=== PATIENT | female | born 1955 | race Caucasian/White ===

== ENCOUNTER 2017-09-30 15:40 | Inpatient (IN) | payer OTHER, MEDICAID, MEDICARE ==
[~2017-09-30] VITALS: Ht 160 cm; Wt 60.9 kg
[~2017-09-30 15:40] MED LIST: DENO60P SQ; DEXAMETHASONE SOD PHOS 4 MG/ML VIAL IV ONE; EMTR1TAB5 PO; INTE200T2 PO; LIDOCAINE HCL 1% PF 5 ML SYRINGE OTHER ONE; LISI10TA3 PO; ONDANSETRON HCL 4 MG/2 ML VIAL IV PUSH ONE; PHENYLEPH/NS 1000 MCG/10 ML SYR IV ONE; PROPOFOL 200 MG/20 ML AMP IV ONE; VIST50CA PO; ceFAZolin INJ 1,000 MG VIAL IV ONE
[2017-09-30 16:41] VITALS: BP 151/80; PULSE 93; RESP 18; TEMP 97.9; O2SAT 95
--- NOTE | 2017-09-30 17:40 | PD ---
HPI Chief Complaint: Skin Problem Time Seen by Provider: 17:30 Travel History International Travel<30 days: No Contact w/Intl Traveler<30days: No Traveled to known affect area: No History of Present Illness HPI 61yo F with PMH of HIV on medication with undetectable viral load, osteoporosis was sent in to the ED by hand surgeon Dr. Stearns. She said that her right third digit has been infected for a month from a possible spider bite. Said she finished two courses of antibiotics and it was not better. She had MRI right hand on Saturday and it showed abscess. She was advised not to eat or drink anything after her phone call at 12pm this afternoon so has been NPO since 12pm. Denies any fever, chest pain, sob, n/v, abdominal pain, focal weakness or numbness. PFSH Past Medical History Blood Disorders: No Anxiety: Yes Depression: Yes Cancer: Yes (MELANOMA BUTTOCKS; BASAL CELL SKIN CANCERS) Cardiovascular Problems: No Chemotherapy: No Diabetes: No Endocrine: No Gastrointestinal Disorders: Yes (DIVERTICULOSIS) Genitourinary: No Hepatitis: No Hiatal Hernia: No Hypertension: Yes Immune Disorder: No Musculoskeletal: Yes (TOTAL RIGHT HIP REPLACEMENT; PARTIAL LEFT HIP REPLACEMENT ; SCOLIOSIS) Neurologic: No Psychiatric: No Reproductive: No Respiratory: No Radiation Therapy: No Thyroid Disease: No Tetanus Vaccination: Unknown ?: Not : 1 Para: 1 Past Surgical History Abdominal Surgery: Yes (APPY ) Appendectomy: Yes Cardiac Surgery: No Ear Surgery: No Eye Surgery: No Gynecologic Surgery: No Joint Replacement: Yes (BILAT HIP) Oral Surgery: No Pacemaker: No Thoracic Surgery: No Other Surgery: Yes Social History Alcohol Use: Yes Tobacco Use: No Substance Use: No Allergies-Medications (Allergen,Severity, Reaction): Coded Allergies: morphine (Unverified Allergy, Intermediate, Hallucinations, 09/30/17) Uncoded Allergies: CATS AND HORSES (Allergy, Mild, 09/14/09) Reported Meds & Prescriptions Reported Meds & Active Scripts Active Reported Descovy (Emtricitabine-Tenofovir Alafenamide) 200-25 mg Tab 1 Tab PO DAILY Intelence (Etravirine) 200 Mg Tab 200 Mg PO BID Review of Systems Except as stated in HPI: all other systems reviewed are Neg Physical Exam Narrative GENERAL: 61yo F not in distress. SKIN: Focused skin assessment warm/dry. HEAD: Atraumatic. Normocephalic. CARDIOVASCULAR: Regular rate and rhythm. No murmur appreciated. RESPIRATORY: No accessory muscle use. Clear to auscultation. Breath sounds equal bilaterally. GASTROINTESTINAL: Abdomen soft, non-tender, nondistended. MUSCULOSKELETAL: Right hand: +Erythema and edema in dorsal aspect of third IP with some fluctuance. NEUROLOGICAL: Awake and alert. No obvious cranial nerve deficits. Motor grossly within normal limits. Normal speech. PSYCHIATRIC: Appropriate mood and affect; insight and judgment normal. Data Data Last Documented VS Vital Signs Date Time Temp Pulse Resp B/P (MAP) Pulse Ox O2 Delivery O2 Flow Rate FiO2 09/30/17 16:41 97.9 93 18 151/80 (103) 95 Orders Orders Complete Blood Count With Diff (09/30/17 17:46) Basic Metabolic Panel (Bmp) (09/30/17 17:46) Consult Infectious Disease (09/30/17 ) Diet Npo (09/30/17 Dinner) Consult Hand Surgery (09/30/17 ) Westergren Sedimentation Rate (09/30/17 18:08) Lymphocyte Profile Cd4 Cd8 (09/30/17 18:08) Consent (09/30/17 18:10) (Hub Use Only)Inp Phy Cons/Ref (09/30/17 ) C-Reactive Protein (Crp) (09/30/17 18:06) Ketorolac Inj (Toradol Inj) (09/30/17 19:15) Neomycin-Polymyxin G.U. Irr (Neosporin G (09/30/17 19:23) (Hub Use Only)Inp Phy Cons/Ref (09/30/17 ) Admit Order (Ed Use Only) (09/30/17 19:32) Labs Laboratory Tests Test 09/30/17 18:06 White Blood Count 4.0 TH/MM3 Red Blood Count 3.69 MIL/MM3 Hemoglobin 12.3 GM/DL Hematocrit 36.4 % Mean Corpuscular Volume 98.9 FL Mean Corpuscular Hemoglobin 33.3 PG Mean Corpuscular Hemoglobin Concent 33.6 % Red Cell Distribution Width 12.2 % Platelet Count 179 TH/MM3 Mean Platelet Volume 7.4 FL Neutrophils (%) (Auto) 54.2 % Lymphocytes (%) (Auto) 32.8 % Monocytes (%) (Auto) 7.9 % Eosinophils (%) (Auto) 4.0 % Basophils (%) (Auto) 1.1 % Neutrophils # (Auto) 2.2 TH/MM3 Lymphocytes # (Auto) 1.3 TH/MM3 Monocytes # (Auto) 0.3 TH/MM3 Eosinophils # (Auto) 0.2 TH/MM3 Basophils # (Auto) 0.0 TH/MM3 CBC Comment DIFF FINAL Differential Comment Erythrocyte Sedimentation Rate 17 mm/hr Blood Urea Nitrogen 21 MG/DL Creatinine 0.82 MG/DL Random Glucose 86 MG/DL Calcium Level 8.8 MG/DL Sodium Level 141 MEQ/L Potassium Level 3.4 MEQ/L Chloride Level 104 MEQ/L Carbon Dioxide Level 27.5 MEQ/L Anion Gap 10 MEQ/L Estimat Glomerular Filtration Rate 70 ML/MIN C-Reactive Protein LESS THAN 0.29 MG/DL MDM Medical Decision Making Medical Screen Exam Complete: Yes Emergency Medical Condition: Yes Differential Diagnosis Finger abscess Narrative Course 61yo F here with right third finger abscess. I discussed with Dr. Stearns and she said to keep the patient NPO, admit to medicine and she will place an ID consult as well as try to take her to the OR tonight. Labs reviewed, no leukocytosis. H/H normal. BMP unremarkable except BUN mildly elevated. Will give maintenance fluid and pain medication. Pt is allergic to morphine so given toradol. Discussed with Dr. Maravilla and accepted to her service. Diagnosis Primary Impression: Abscess of finger Qualified Codes: L02.511 - Cutaneous abscess of right hand Admitting Information Admitting Physician Requests: Vilma Martins DO Sep 30, 2017 17:40
[2017-09-30 18:31] LABS: AUTOMATED NEUTROPHIL # 2.2 TH/MM3 (1.8-7.7); BASOPHIL % 1.1 % (0.0-2.0); EOSINOPHIL # 0.2 TH/MM3 (0-0.4); HEMATOCRIT 36.4 % (35.0-46.0); HEMOGLOBIN 12.3 GM/DL (11.6-15.3); LYMPH % 32.8 % (9.0-44.0); LYMPHOCYTE # 1.3 TH/MM3 (1.0-4.8); MEAN CELL VOLUME 98.9 FL (80.0-100.0); MEAN CORPUSCULAR HEMOGLOBIN 33.3 PG (27.0-34.0); MEAN CORPUSCULAR HGB CONC 33.6 % (32.0-36.0); MEAN PLATELET VOLUME 7.4 FL (7.0-11.0); MONO % 7.9 % (0.0-8.0); MONOCYTE # 0.3 TH/MM3 (0-0.9); NEUT % 54.2 % (16.0-70.0); PLATELET COUNT 179 TH/MM3 (150-450); RED BLOOD COUNT 3.69 MIL/MM3 (4.00-5.30); RED CELL DISTRIBUTION WIDTH 12.2 % (11.6-17.2)
[2017-09-30 18:58] LABS: BICARBONATE 27.5 MEQ/L (21.0-32.0); BLOOD UREA NITROGEN 21 MG/DL (7-18); C-REACTIVE PROTEIN LESS THAN 0.29 MG/DL (0.00-0.30); CALCIUM 8.8 MG/DL (8.5-10.1); CHLORIDE 104 MEQ/L (98-107); CREATININE 0.82 MG/DL (0.50-1.00); GLOMERULAR FILTRATION RATE 70 ML/MIN (>89); GLUCOSE,RANDOM 86 MG/DL (74-106); SODIUM (NA) 141 MEQ/L (136-145)
[2017-09-30] MEDS ORDERED: KETOROLAC TROMETHAMINE 30 MG/ML (IVP) VIAL IV PUSH ONE (19:15)
[2017-09-30] MEDS ORDERED: NEOMYCIN/POLYMYXIN 1 ML G.U. IRRIGANT ONE (19:23)
[2017-09-30] MEDS ORDERED: EMTR1TAB4 PO (19:47)
[2017-09-30] MEDS ORDERED: SODIUM CHLORIDE 0.9% FLUSH 10 ML FLUSH IV FLUSH PRN (20:15)
[2017-09-30] MEDS ORDERED: NALOXONE HCL 0.4 MG/ML AMP IV PUSH PRN (20:15)
[2017-09-30] MEDS ORDERED: ACETAMINOPHEN 325 MG TAB PO PRN (20:15)
[2017-09-30] MEDS ORDERED: LIDOCAINE HCL 1% 50 ML VIAL ONE (20:42)
[2017-09-30] MEDS ORDERED: Vancomycin Consult Pharmacy 1 EA OTHER SCH (20:45)
--- NOTE | 2017-09-30 20:52 | HHI.HP ---
[facility] Mago Layton MD Admission Diagnosis Finger abscess Diagnoses: Travel History International Travel<30 Days: No Contact w/Intl Traveler <30 Da: No Traveled to Known Affected Are: No History of Present Illness 61-year-old female with a past medical history significant for osteoporosis, HIV and hypertension presents the emergency department for evaluation of a erythematous and swollen right hand third digit. The patient reports that for approximately the past 3-4 weeks her finger has been swollen and painful. She reports the pain has continued to worsen and was throbbing all last night to the point where it interferes with her sleep. She denies any systemic symptoms such as fever/chills. The patient was seen by hand surgery where she was treated with 2 different courses of antibiotics and without improvement. She was sent to the emergency department by Dr. Stearns for further treatment. No chest pain or shortness of breath. No abdominal pain. No nausea/vomiting/ diarrhea. No weakness or fatigue. No lateralizing signs/symptoms. Review of Systems Except as stated in HPI: all other systems reviewed are Neg Past Family Social History Past Medical History HIV (per patient her viral load is undetectable) Osteoporosis Hypertension Past Surgical History Left hip replacement Right femur Left elbow Reported Medications Reported Meds & Active Scripts Active Reported Descovy (Emtricitabine-Tenofovir Alafenamide) 200-25 mg Tab 1 Tab PO DAILY Intelence (Etravirine) 200 Mg Tab 200 Mg PO BID Allergies: Coded Allergies: morphine (Unverified Allergy, Intermediate, Hallucinations, 09/30/17) Uncoded Allergies: CATS AND HORSES (Allergy, Mild, 09/14/09) Family History Negative for CAD/DM Social History Occasional alcohol. Denies tobacco and illicit drugs. Physical Exam Vital Signs Vital Signs Date Time Temp Pulse Resp B/P (MAP) Pulse Ox O2 Delivery O2 Flow Rate FiO2 09/30/17 16:41 97.9 93 18 151/80 (103) 95 Physical Exam GENERAL: This is a well-nourished, well-developed patient, in no apparent distress. SKIN: Extremely swollen and erythematous right hand third digit HEAD: Atraumatic. Normocephalic. No temporal or scalp tenderness. EYES: Pupils equal round and reactive. Extraocular motions intact. No scleral icterus. No injection or drainage. ENT: Nose without bleeding, purulent drainage or septal hematoma. Throat without erythema, tonsillar hypertrophy or exudate. Uvula midline. Airway patent. NECK: Trachea midline. No JVD or lymphadenopathy. Supple, nontender, no meningeal signs. CARDIOVASCULAR: Regular rate and rhythm without murmurs, gallops, or rubs. RESPIRATORY: Clear to auscultation. Breath sounds equal bilaterally. No wheezes , rales, or rhonchi. GASTROINTESTINAL: Abdomen soft, non-tender, nondistended. No hepato-splenomegaly , or palpable masses. No guarding. MUSCULOSKELETAL: No calf tenderness. Unable to flex or extend third digit of right hand at the PCP joint. No obvious drainage. Warm to the touch. NEUROLOGICAL: Awake and alert. Cranial nerves II through XII intact. Motor and sensory grossly within normal limits. Normal speech. Laboratory Laboratory Tests Test 09/30/17 18:06 White Blood Count 4.0 Red Blood Count 3.69 Hemoglobin 12.3 Hematocrit 36.4 Mean Corpuscular Volume 98.9 Mean Corpuscular Hemoglobin 33.3 Mean Corpuscular Hemoglobin Concent 33.6 Red Cell Distribution Width 12.2 Platelet Count 179 Mean Platelet Volume 7.4 Neutrophils (%) (Auto) 54.2 Lymphocytes (%) (Auto) 32.8 Monocytes (%) (Auto) 7.9 Eosinophils (%) (Auto) 4.0 Basophils (%) (Auto) 1.1 Neutrophils # (Auto) 2.2 Lymphocytes # (Auto) 1.3 Monocytes # (Auto) 0.3 Eosinophils # (Auto) 0.2 Basophils # (Auto) 0.0 CBC Comment DIFF FINAL Differential Comment Erythrocyte Sedimentation Rate 17 Blood Urea Nitrogen 21 Creatinine 0.82 Random Glucose 86 Calcium Level 8.8 Sodium Level 141 Potassium Level 3.4 Chloride Level 104 Carbon Dioxide Level 27.5 Anion Gap 10 Estimat Glomerular Filtration Rate 70 C-Reactive Protein LESS THAN 0.29 Result Diagram: 09/30/17180509/30/171805 Caprini VTE Risk Assessment Caprini VTE Risk Assessment: Mod/High Risk (score >= 2) Caprini Risk Assessment Model Point Value = 1 Point Value = 2 Point Value = 3 Point Value = 5 Age 41-60 Minor surgery BMI > 25 kg/m2 Swollen legs Varicose veins or History of unexplained or recurrent spontaneous Oral contraceptives or hormone replacement Sepsis (< 1 month) Serious lung disease, including pneumonia (< 1 month) Abnormal pulmonary function Acute myocardial infarction Congestive heart failure (< 1 month) History of inflammatory bowel disease Medical patient at bed rest Age 61-74 Arthroscopic surgery Major open surgery (> 45 min) Laparoscopic surgery (> 45 min) Malignancy Confined to bed (> 72 hours) Immobilizing plaster cast Central venous access Age >= 75 History of VTE Family history of VTE Factor V Leiden Prothrombin [id number] Lupus anticoagulant Anticardiolipin antibodies Elevated serum homocysteine Heparin-induced thrombocytopenia Other congenital or acquired thrombophilia Stroke (< 1 month) Elective arthroplasty Hip, pelvis, or leg fracture Acute spinal cord injury (< 1 month) Prophylaxis Regimen Total Risk Factor Score Risk Level Prophylaxis Regimen 0-1 Low Early ambulation 2 Moderate Order ONE of the following: *Sequential Compression Device (SCD) *Heparin 5000 units SQ BID 3-4 Higher Order ONE of the following medications: *Heparin 5000 units SQ TID *Enoxaparin/Lovenox 40 mg SQ daily (WT < 150 kg, CrCl > 30 mL/min) *Enoxaparin/Lovenox 30 mg SQ daily (WT < 150 kg, CrCl > 10-29 mL/min) *Enoxaparin/Lovenox 30 mg SQ BID (WT < 150 kg, CrCl > 30 mL/min) AND/OR *Sequential Compression Device (SCD) 5 or more Highest Order ONE of the following medications: *Heparin 5000 units SQ TID (Preferred with Epidurals) *Enoxaparin/Lovenox 40 mg SQ daily (WT < 150 kg, CrCl > 30 mL/min) *Enoxaparin/Lovenox 30 mg SQ daily (WT < 150 kg, CrCl > 10-29 mL/min) *Enoxaparin/Lovenox 30 mg SQ BID (WT < 150 kg, CrCl > 30 mL/min) AND *Sequential Compression Device (SCD) Assessment and Plan Assessment and Plan Assessment/plan: 1. Finger abscess/cellulitis Status post antibiotic therapy as an outpatient MRI done Saturday showed abscess Hand surgery consulted, appreciate assistance Vancomycin/Zosyn Wound cultures pending -tailor antibiotics once cultures result OT consulted 2. HIV Continue home antiretrovirals 3. Hypertension Continue home amlodipine FEN Regular diet after operative intervention Electrolytes: Status post p.o. repletion of potassium, monitor BMP Holding pharmacologic anticoagulation for operative intervention Physician Certification 2 Midnight Certification Type: Admission for Inpatient Services Order for Inpatient Services The services are ordered in accordance with Medicare regulations or non- Medicare payer requirements, as applicable. In the case of services not specified as inpatient-only, they are appropriately provided as inpatient services in accordance with the 2-midnight benchmark. Estimated LOS (days): 2 2 days is the estimated time the patient will need to remain in the hospital, assuming treatment plan goals are met and no additional complications. Post-Hospital Plan: Not yet determined Radha Maravilla MD Sep 30, 2017 20:52
[2017-09-30] MEDS ORDERED: ceFAZolin INJ 1,000 MG VIAL IV ONE (20:57)
[2017-09-30] MEDS ORDERED: POTASSIUM CHLORIDE 20 MEQ CONTROLLED RELEASE TAB PO ONE (21:00)
[2017-09-30] MEDS: SODIUM CHLORIDE 0.9% FLUSH 10 ML FLUSH IV FLUSH SCH (21:00)
[2017-09-30] MEDS ORDERED: ETRAVIRINE 200 MG PO SCH (21:00)
[2017-09-30] MEDS: PIPERACIL-TAZO 3.375 GM PREMIX 50 ML IV SCH (21:00)
[2017-09-30] MEDS ORDERED: DO NOT ADM ANY ANTICOAGULANT DRUGS PRN (21:22)
[2017-09-30] MEDS: KETOROLAC TROMETHAMINE 30 MG/ML (IVP) VIAL IV PUSH PRN (21:31)
[2017-09-30] MEDS ORDERED: *HYDROmorphone PF 0.5 MG/0.5 ML PERIprocedure ONLY ONE ×2 (21:38→21:52)
[2017-09-30] MEDS ORDERED: VANCOMYCIN INJ 1,250 MG in SODIUM CHLOR 0.9% 250 ML INJ 250 ML IV ONE (22:00)
[2017-09-30] MEDS: ETRAVIRINE 100 MG TAB PO SCH (22:34)
--- NOTE | 2017-09-30 22:42 | PD.ORT.PN ---
Subjective Subjective Remarks Patient reports pain controlled in PACU. Objective Vitals Vital Signs Date Time Temp Pulse Resp B/P (MAP) Pulse Ox O2 Delivery O2 Flow Rate FiO2 09/30/17 22:00 100 18 154/80 (104) 96 Nasal Cannula 1 09/30/17 21:45 87 18 154/78 (103) 98 Nasal Cannula 1 09/30/17 21:30 95 18 167/98 (121) 96 Nasal Cannula 1 09/30/17 21:18 97.4 101 15 183/98 (126) 96 Nasal Cannula 3 09/30/17 16:41 97.9 93 18 151/80 (103) 95 I/O 09/29/17 09/29/17 09/29/17 09/30/17 09/30/17 09/30/17 07:00 15:00 23:00 07:00 15:00 23:00 Intake Total 500 ml Output Total 5 ml Balance 495 ml Intake IV Total 500 ml Output Estimated Blood Loss 5 ml Result Diagram: 09/30/17 1806 09/30/17 180 Objective Remarks dressing in place, <2 sec capillary refill to finger Assessment & Plan Assessment and Plan [id number] pmhx HIV several weeks s/p racoon bite to r middle finger s/p oral antibiotics with MRI + abscess, POD- s/p I&D right middle finger, PIP arthrotomy and debridement extensor tendon sheath -IV Ab per ID -Daily dressing changes with packing starting POD2 -Gentle ROM Nelly Stearns MD Sep 30, 2017 22:42
[2017-09-30 23:00] VITALS: BP 142/70; PULSE 107; RESP 20; TEMP 97.2; O2SAT 94
--- NOTE | 2017-10-01 00:33 | MP ---
cc: Nelly Stearns MD DATE OF OPERATION: 09/30/2017 PREOPERATIVE DIAGNOSIS: Abscess and tenosynovitis, right middle finger proximal interphalangeal joint. POSTOPERATIVE DIAGNOSIS: Abscess and tenosynovitis, right middle finger proximal interphalangeal joint. PROCEDURES PERFORMED: 1. Incision and drainage abscess, right middle finger. 2. PIP arthrotomy, right middle finger. 3. Debridement of extensor tendon and sheath, right middle finger. SURGEON: Nelly Stearns MD ANESTHESIA: General and local. TOURNIQUET TIME: 4 minutes at 200 mmHg. SPECIMENS: Culture x 2. INDICATIONS FOR PROCEDURE: Alexa Varela is a 61-year-old female who was bitten on the right middle finger by a raccoon several weeks ago. She was initially seen in the office and MRI, lab work and followup with infectious disease was ordered as the patient was currently on oral antibiotics with some improvement. MRI on Saturday showed abscess and the patient was instructed to come to the emergency room. She elected to proceed with surgical intervention. Risks were explained, but not limited to, wound complications, infection, sepsis, stiffness, pain, need for additional surgeries and she elected to proceed. DESCRIPTION OF PROCEDURE: The patient was identified in the preoperative holding room and the correct extremity was marked. The patient was taken to the operating room, where she was induced. The right upper extremity prepped and draped in normal sterile fashion. Approximately 8 mL of 2% lidocaine with no epinephrine was used for local anesthesia of the finger. Tourniquet was inflated to 200 mmHg for 15 minutes. A curvilinear incision was made over the ulnar border of the right middle finger. Purulence was encountered and sent for culture. There was also purulence along the extensor tendon sheath, which was debrided with a rongeur. Arthrotomy in the joint was made and there was also purulence in the joint, although the cartilage appeared intact. The wound was irrigated with antibiotic saline. Tourniquet was released. There was less than 2-second capillary refill to the finger. The wound was packed and closed loosely with chromic. Tourniquet was released. The patient has less than 2 second capillary refill to the finger. The patient was awoken from anesthesia without any complications. She remained in the hospital per infectious disease for IV antibiotic. MD NOVA Teran , 10:45 PM , 12:31 AM [facility]
[2017-10-01 04:00] VITALS: BP 137/73; PULSE 102; RESP 20; TEMP 97.4; O2SAT 94
[2017-10-01] MEDS: PIPERACIL-TAZO 3.375 GM PREMIX 50 ML IV SCH ×4 (04:44→20:39)
[2017-10-01 08:00] VITALS: BP 126/72; PULSE 81; RESP 20; TEMP 97.5; O2SAT 95
[2017-10-01 08:16] LABS: AUTOMATED NEUTROPHIL # 4.8 TH/MM3 (1.8-7.7); BASOPHIL % 0.4 % (0.0-2.0); EOSINOPHIL % 0.1 % (0.0-4.0); HEMATOCRIT 34.8 % (35.0-46.0); HEMOGLOBIN 11.9 GM/DL (11.6-15.3); LYMPH % 15.9 % (9.0-44.0); MEAN CELL VOLUME 98.8 FL (80.0-100.0); MEAN CORPUSCULAR HEMOGLOBIN 33.6 PG (27.0-34.0); MEAN PLATELET VOLUME 7.6 FL (7.0-11.0); MONO % 4.9 % (0.0-8.0); MONOCYTE # 0.3 TH/MM3 (0-0.9); NEUT % 78.7 % (16.0-70.0); PLATELET COUNT 167 TH/MM3 (150-450); RED BLOOD COUNT 3.53 MIL/MM3 (4.00-5.30); RED CELL DISTRIBUTION WIDTH 12.2 % (11.6-17.2)
[2017-10-01 08:47] LABS: CREATININE 0.71 MG/DL (0.50-1.00)
[2017-10-01] MEDS ORDERED: PT:DESCOVY PO SCH (09:00)
[2017-10-01] MEDS: SODIUM CHLORIDE 0.9% FLUSH 10 ML FLUSH IV FLUSH SCH ×2 (09:00→20:40)
[2017-10-01] MEDS ORDERED: NON-FORMULARY DRUG (Emtricitabine-Tenofovir Alafenamide (Descovy) 1 TAB) PO SCH (09:00)
[2017-10-01] MEDS: ETRAVIRINE 100 MG TAB PO SCH ×2 (09:37→20:13)
[2017-10-01] MEDS: oxyCODONE/ACETAMINOPHEN 7.5 MG/325 MG TAB PO PRN ×3 (09:45→20:17)
--- NOTE | 2017-10-01 10:54 | PD.CONS ---
History of Present Illness Service Infectious disease Consult Requested By Dr. Stearns Reason for Consult Evaluate patient with finger infection, has known HIV Primary Care Physician Mago Layton MD Diagnoses: History of Present Illness Patient seen and examined. Records reviewed. Patient is 61-year-old female, admitted to the hospital for further management of her finger. Patient stated about a month ago he sustained a wound on her right middle finger after she had a raccoon. She called the health department and was told that there is been no rabies case in [place]. She started noticing swelling on her finger, and she saw her primary care physician who gave her a 5 day course of antibiotics. It did not improve, and she continued to have swelling and redness and had noted progression. She noted to pinpoint areas on the same finger but on the PIP joint and thought that she probably had some kind of a spider bite. She saw her primary care physician again, and she was given another antibiotic which she took for 10 days. She was not improving , and so an MRI was done. Took about a week to have the MRI done and the MRI showed evidence of abscess. Patient was told to go to the hospital and had surgery evaluated the patient. Patient had surgery last night. Patient denies any fever chills or sweats. Most of the redness has been on her right middle finger and she did not see any red streaks going up her hand or forearm. Patient has not been febrile. Her WBC is normal. Sed rate and C-reactive protein is normal. She is currently on vancomycin and Zosyn. Patient has had HIV for many years, and she has been following with Dr. Darnell for at least several years. She has been on the same HAART for the same amount of time. She does not know her last CD4 counts. Infectious disease consultation has been requested to assist with evaluation and treatment. Review of Systems Constitutional: DENIES: Fever, Chills, Night Sweats Eyes: DENIES: Eye pain Ears, nose, mouth, throat: DENIES: Nasal discharge, Oral lesions, Throat pain, Ear Pain, Sinus Pain Respiratory: DENIES: Cough, Shortness of breath Cardiovascular: DENIES: Chest pain, Palpitations, Dyspnea on Exertion, Lower Extremity Edema Gastrointestinal: DENIES: Abdominal pain, Diarrhea, Nausea, Vomiting, Difficulty Swallowing Genitourinary: DENIES: Urgency, Dysuria Musculoskeletal: COMPLAINS OF: Joint pain, Joint Swelling, DENIES: Back pain Integumentary: DENIES: Pruritus, Rash Hematologic/lymphatic: DENIES: Bruising Neurologic: DENIES: Headache, Localized weakness Psychiatric: DENIES: Hallucinations Past Family Social History Allergies: Coded Allergies: morphine (Unverified Allergy, Intermediate, Hallucinations, 09/30/17) Uncoded Allergies: CATS AND HORSES (Allergy, Mild, 09/14/09) Past Medical History HIV (per patient her viral load is undetectable) Osteoporosis Hypertension Coloperineal fistula Previous episode of diverticulitis Past Surgical History Left hip replacement Right femur Left elbow Previous exp lap, with proctosigmoidectomy, ileostomy Reversal of ileostomy Active Ordered Medications Current Medications Medications (Trade) Dose Ordered Sig/Carlito Route Start Time Stop Time Status Last Admin (NS Flush) 2 ml UNSCH PRN IV FLUSH 09/30/17 20:15 (NS Flush) 2 ml BID IV FLUSH 09/30/17 21:00 (Tylenol) 650 mg Q4H PRN PO 09/30/17 20:15 (Narcan Inj) 0.4 mg UNSCH PRN IV PUSH 09/30/17 20:15 (Toradol Inj) 30 mg Q6H PRN IV PUSH 09/30/17 20:15 10/05/17 20:14 09/30/17 21:31 (Percocet 7.5-325 Mg) 1 tab Q4H PRN PO 09/30/17 20:45 10/01/17 09:45 (Norvasc) 10 mg DAILY PO 10/01/17 09:00 10/01/17 09:37 Pharmacy Profile Note 0 ml @ 0 mls/hr UNSCH OTHER 09/30/17 20:45 Piperacillin Sod/ Tazobactam Sod 50 ml @ 100 mls/hr Q6H IV 09/30/17 21:00 10/01/17 09:38 Patient Own Medication PT OWN MED: DESCOVY... DAILY PO 10/01/17 09:00 Future Hold (Intelence) 200 mg BID PO 09/30/17 21:00 10/01/17 09:37 ([facility] [place] [facility] ALL NURSING DEPARTME... UNSCH PRN .XX 09/30/17 21:22 10/01/17 21:21 Vancomycin HCl 1000 mg/Sodium Chloride 250 ml @ 250 mls/hr Q18H IV 10/01/17 16:00 ([facility] Ordered Lab Info) SPECIFIC LAB TO BE DRAWN: VANCO TROUGH DATE TO... ONCE ONCE .XX 10/02/17 09:45 10/02/17 09:46 Family History Unremarkable Social History Occasional alcohol Denies smoking Denies illicit drug Physical Exam Vital Signs Vital Signs Date Time Temp Pulse Resp B/P (MAP) Pulse Ox O2 Delivery O2 Flow Rate FiO2 10/01/17 08:00 97.5 81 20 126/72 (90) 95 10/01/17 04:00 97.4 102 20 137/73 (94) 94 09/30/17 23:00 97.2 107 20 142/70 (94) 94 09/30/17 22:00 100 18 154/80 (104) 96 Nasal Cannula 1 09/30/17 21:45 87 18 154/78 (103) 98 Nasal Cannula 1 09/30/17 21:30 95 18 167/98 (121) 96 Nasal Cannula 1 09/30/17 21:18 97.4 101 15 183/98 (126) 96 Nasal Cannula 3 09/30/17 16:41 97.9 93 18 151/80 (103) 95 Physical Exam GENERAL: Patient is a well-nourished, well-developed female, awake and alert, not in respiratory distress. SKIN: Warm and dry. No generalized rash, no ecchymoses and no evidence of embolic lesions. HEAD: Atraumatic. Normocephalic. No temporal wasting, or tenderness. EYES: [place] conjunctiva. No petechia or hemorrhage. Pupils equal, round and reactive to light. Extraocular movements full and intact. No scleral icterus. No injection or drainage. EARS, NOSE AND THROAT: Nose without bleeding or purulent nasal discharge. No sinus tenderness. Mucous membranes pink and moist. No oral lesions noted. No exudate. No oral thrush. NECK: Trachea midline. Supple and not tender, no meningeal signs CARDIOVASCULAR: Regular rate and rhythm. No murmurs, rubs or gallops heard RESPIRATORY: Clear to auscultation. Breath sounds equal bilaterally. No rales , wheezing or rhonchi ABDOMEN: Soft, non-tender, nondistended. Bowel sounds present and normoactive. No guarding. No rebound. No organomegaly. EXTREMITIES: No clubbing, cyanosis, or edema in BLE. No joint effusion, has good ROM. No calf tenderness. Well perfused and warm. R hand - has dressing in place, with breakthrough blood in dressing that is already dry. Did not remove dressing (From OR), middle finger swollen and red at PIP joint with sutures in place NEUROLOGICAL: Awake and alert. Cranial nerves grossly intact. Motor grossly within normal limits. PSYCHIATRIC: Normal affect, calm and cooperative. LINE: No evidence of infection Laboratory Laboratory Tests Test 09/30/17 18:06 10/01/17 07:56 White Blood Count 4.0 6.0 Red Blood Count 3.69 3.53 Hemoglobin 12.3 11.9 Hematocrit 36.4 34.8 Mean Corpuscular Volume 98.9 98.8 Mean Corpuscular Hemoglobin 33.3 33.6 Mean Corpuscular Hemoglobin Concent 33.6 34.0 Red Cell Distribution Width 12.2 12.2 Platelet Count 179 167 Mean Platelet Volume 7.4 7.6 Neutrophils (%) (Auto) 54.2 78.7 Lymphocytes (%) (Auto) 32.8 15.9 Monocytes (%) (Auto) 7.9 4.9 Eosinophils (%) (Auto) 4.0 0.1 Basophils (%) (Auto) 1.1 0.4 Neutrophils # (Auto) 2.2 4.8 Lymphocytes # (Auto) 1.3 1.0 Monocytes # (Auto) 0.3 0.3 Eosinophils # (Auto) 0.2 0.0 Basophils # (Auto) 0.0 0.0 CBC Comment DIFF FINAL DIFF FINAL Differential Comment Erythrocyte Sedimentation Rate 17 Blood Urea Nitrogen 21 19 Creatinine 0.82 0.71 Random Glucose 86 102 Calcium Level 8.8 8.0 Sodium Level 141 139 Potassium Level 3.4 4.0 Chloride Level 104 103 Carbon Dioxide Level 27.5 26.0 Anion Gap 10 10 Estimat Glomerular Filtration Rate 70 83 C-Reactive Protein LESS THAN 0.29 Date/Time Source Procedure Growth Status 09/30/17 20:47 Wound Finger Fungal Smear - Final NO FUNGAL ELEMENTS SEEN. Resulted 09/30/17 20:47 Wound Finger Fungal Culture Pending Resulted Result Diagram: 10/01/17 0756 10/01/17 0756 Assessment and Plan Assessment and Plan IMPRESSION RMF infection, into joint, from raccoon bite - S/P I and D Known HIV, seems stable and compliant with follow-up with Dr Darnell RECOMMENDATION Follow C/S Continue current empiric Abx: Sukhjinder and Alvino Will examine hand when ok with surgery Monitor progress When patient gets D/C, she can follow up with Dr Darnell ID I will follow along with you Thank you for this consultation Discussed Condition With Explained plan to the patient Jacqueline Grimes MD Oct 01, 2017 10:54
[2017-10-01 12:00] VITALS: BP 113/59; PULSE 73; RESP 18; TEMP 97.9; O2SAT 95
[2017-10-01] MEDS: VANCOMYCIN 1,000 MG/NS 250 ML IV SCH ×2 (15:42)
[2017-10-01 16:00] VITALS: BP 134/68; PULSE 78; RESP 16; TEMP 98; O2SAT 94
[2017-10-01] MEDS: KETOROLAC TROMETHAMINE 30 MG/ML (IVP) VIAL IV PUSH PRN ×2 (17:04→23:31)
--- NOTE | 2017-10-01 17:32 | HHI.PR ---
Subjective Remarks Has throbbing pain at the surgical site. No fever or chills overnight. Has some nausea in the morning able to eat vomiting. Complains of constipation. Start bowel regimen. Otherwise no complaints Objective Vitals Vital Signs Date Time Temp Pulse Resp B/P (MAP) Pulse Ox O2 Delivery O2 Flow Rate FiO2 10/01/17 16:28 16 10/01/17 16:00 98.0 78 16 134/68 (90) 94 10/01/17 12:00 97.9 73 18 113/59 (77) 95 10/01/17 08:00 97.5 81 20 126/72 (90) 95 10/01/17 04:00 97.4 102 20 137/73 (94) 94 09/30/17 23:00 97.2 107 20 142/70 (94) 94 09/30/17 22:00 100 18 154/80 (104) 96 Nasal Cannula 1 09/30/17 21:45 87 18 154/78 (103) 98 Nasal Cannula 1 09/30/17 21:30 95 18 167/98 (121) 96 Nasal Cannula 1 09/30/17 21:18 97.4 101 15 183/98 (126) 96 Nasal Cannula 3 I/O 09/30/17 09/30/17 09/30/17 10/01/17 10/01/17 10/01/17 07:00 15:00 23:00 07:00 15:00 23:00 Intake Total 500 ml 622.5 ml Output Total 5 ml Balance 495 ml 622.5 ml Intake Oral 360 ml IV Total 500 ml 262.5 ml Output Estimated Blood Loss 5 ml # Voids 2 # Bowel Movements 0 Result Diagram: 10/01/17 0756 10/01/17 0756 Objective Remarks GENERAL: This is a well-nourished, well-developed patient, in no apparent distress. CARDIOVASCULAR: Regular rate and rhythm without murmurs, gallops, or rubs. RESPIRATORY: Clear to auscultation. Breath sounds equal bilaterally. No wheezes , rales, or rhonchi. GASTROINTESTINAL: Abdomen soft, non-tender, nondistended. No hepato-splenomegaly , or palpable masses. No guarding. MUSCULOSKELETAL: Right hand with dressing on , some bloody discharge seen. Neurovascular intact. No calf tenderness. Unable to flex or extend third digit of right hand at the PCP joint. No obvious drainage. Warm to the touch. NEUROLOGICAL: Awake and alert. Cranial nerves II through XII intact. Motor and sensory grossly within normal limits. Normal speech. A/P Assessment and Plan 61yF pmhx HIV several weeks s/p racoon bite to r middle finger s/p oral antibiotics with MRI + abscess, POD- s/p I&D right middle finger, PIP arthrotomy and debridement extensor tendon sheath by Dr Nelly Stearns hand surgeon on 09/30/17. Finger abscess/cellulitis Status post antibiotic therapy as an outpatient MRI done Saturday showed abscess Hand surgery consulted, ff S/p I&D right middle finger, PIP arthrotomy and debridement extensor tendon sheath by Dr Nelly Stearns hand surgeon on 09/30/17. IV Ab per ID recommendations Daily dressing changes with packing per hand surgeon, ff Gentle ROM Continue Vancomycin/Zosyn per ID recommendations Wound cultures pending OT consulted Constipation - bowel regimen HIV - Continue home antiretrovirals Hypertension Continue home amlodipine DVT ppx scd/teds. Chemical ppx per surgeon if need. Sosa Alves MD Oct 01, 2017 17:32
[2017-10-01] MEDS ORDERED: LACTULOSE SYRUP 20 GM/30 ML CUP PO PRN (17:45)
[2017-10-01] MEDS ORDERED: BISACODYL 10 MG SUPP RECTAL PRN (17:45)
[2017-10-01] MEDS ORDERED: MAGNESIUM HYDROXIDE SUSP 30 ML CUP PO PRN (17:45)
[2017-10-01] MEDS ORDERED: SENNOSIDES 8.6 MG TAB PO PRN (17:45)
[2017-10-01] MEDS ORDERED: NALOXONE HCL 0.4 MG/ML AMP IV PUSH PRN (17:45)
[2017-10-01 20:00] VITALS: BP 114/57; PULSE 76; RESP 19; TEMP 98.2; O2SAT 97
[2017-10-01] MEDS: CALCIUM CARBONATE 500 MG CHEWABLE TAB CHEW PRN (20:12)
[2017-10-01] MEDS: DOCUSATE SODIUM 50 MG/SENNA 8.6 MG TAB PO SCH (20:13)
[2017-10-02] VITALS: BP 115/62; PULSE 77; RESP 19; TEMP 98.1; O2SAT 95
[2017-10-02] MEDS: oxyCODONE/ACETAMINOPHEN 7.5 MG/325 MG TAB PO PRN ×4 (02:43→20:07)
[2017-10-02] MEDS: PIPERACIL-TAZO 3.375 GM PREMIX 50 ML IV SCH ×4 (02:48→20:07)
[2017-10-02 04:00] VITALS: BP 112/65; PULSE 79; RESP 19; TEMP 98.1; O2SAT 92
[2017-10-02] MEDS: ETRAVIRINE 100 MG TAB PO SCH ×2 (07:42→20:07)
[2017-10-02] MEDS: DOCUSATE SODIUM 50 MG/SENNA 8.6 MG TAB PO SCH ×2 (07:42→20:07)
[2017-10-02] MEDS: SODIUM CHLORIDE 0.9% FLUSH 10 ML FLUSH IV FLUSH SCH ×2 (07:43→20:09)
[2017-10-02 08:00] VITALS: BP 130/73; PULSE 68; RESP 17; TEMP 97.8; O2SAT 98
[2017-10-02] MEDS: CALCIUM CARBONATE 500 MG CHEWABLE TAB CHEW PRN ×2 (08:31→23:38)
--- NOTE | 2017-10-02 09:20 | HHI.PR ---
Subjective Remarks Pain is better controlled. Dressings of her hand was changed today. No bleeding. No fever or chills. No nausea vomiting. Objective Vitals Vital Signs Date Time Temp Pulse Resp B/P (MAP) Pulse Ox O2 Delivery O2 Flow Rate FiO2 10/02/17 08:51 16 10/02/17 04:00 98.1 79 19 112/65 (81) 92 10/02/17 00:55 20 10/02/17 00:00 98.1 77 19 115/62 (79) 95 10/01/17 20:00 98.2 76 19 114/57 (76) 97 10/01/17 16:00 98.0 78 16 134/68 (90) 94 10/01/17 12:00 97.9 73 18 113/59 (77) 95 I/O 10/01/17 10/01/17 10/01/17 10/02/17 10/02/17 10/02/17 07:00 15:00 23:00 07:00 15:00 23:00 Intake Total 622.5 ml 2000 ml 240 ml Balance 622.5 ml 2000 ml 240 ml Intake Oral 360 ml 2000 ml 240 ml IV Total 262.5 ml # Voids 2 5 3 # Bowel Movements 0 0 Result Diagram: 10/01/17 0756 10/01/17 0756 Objective Remarks GENERAL: This is a well-nourished, well-developed patient, in no apparent distress. CARDIOVASCULAR: Regular rate and rhythm without murmurs, gallops, or rubs. RESPIRATORY: Clear to auscultation. Breath sounds equal bilaterally. No wheezes , rales, or rhonchi. GASTROINTESTINAL: Abdomen soft, non-tender, nondistended. No hepato-splenomegaly , or palpable masses. No guarding. MUSCULOSKELETAL: Right hand with dressing on , some bloody discharge seen. Neurovascular intact. No calf tenderness. Unable to flex or extend third digit of right hand at the PCP joint. No obvious drainage. Warm to the touch. NEUROLOGICAL: Awake and alert. Cranial nerves II through XII intact. Motor and sensory grossly within normal limits. Normal speech. A/P Assessment and Plan 61yF pmhx HIV several weeks s/p racoon bite to r middle finger s/p oral antibiotics with MRI + abscess, POD- s/p I&D right middle finger, PIP arthrotomy and debridement extensor tendon sheath by Dr Nelly Stearns hand surgeon on 09/30/17. Finger abscess/cellulitis Status post antibiotic therapy as an outpatient MRI done Saturday showed abscess Hand surgery consulted, ff S/p I&D right middle finger, PIP arthrotomy and debridement extensor tendon sheath by Dr Nelly Stearns hand surgeon on 09/30/17. IV Ab per ID recommendations Daily dressing changes with packing per hand surgeon, ff Gentle ROM Continue Vancomycin/Zosyn per ID recommendations Wound cultures pending OT consulted Constipation - bowel regimen HIV - Continue home antiretrovirals Hypertension Continue home amlodipine DVT ppx scd/teds. Chemical ppx per surgeon if need. Sosa Alves MD Oct 02, 2017 09:20
[2017-10-02] MEDS ORDERED: PHARMACY ORDERED LAB ONE (09:45)
[2017-10-02] MEDS: VANCOMYCIN 1,000 MG/NS 250 ML IV SCH ×2 (10:11)
[2017-10-02] MEDS: KETOROLAC TROMETHAMINE 30 MG/ML (IVP) VIAL IV PUSH PRN ×2 (10:15→18:08)
[2017-10-02 12:00] VITALS: BP 102/50; PULSE 73; RESP 17; TEMP 98; O2SAT 93
--- NOTE | 2017-10-02 13:03 | HHI.IDPN ---
Subjective Subjective Remarks Patient is 61-year-old female, admitted to the hospital for further management of her finger. Patient stated about a month ago he sustained a wound on her right middle finger after she had a raccoon. She called the health department and was told that there is been no rabies case in [place]. She started noticing swelling on her finger, and she saw her primary care physician who gave her a 5 day course of antibiotics. It did not improve, and she continued to have swelling and redness and had noted progression. She noted to pinpoint areas on the same finger but on the PIP joint and thought that she probably had some kind of a spider bite. She saw her primary care physician again, and she was given another antibiotic which she took for 10 days. She was not improving , and so an MRI was done. Took about a week to have the MRI done and the MRI showed evidence of abscess. Patient was told to go to the hospital and had surgery evaluated the patient. Patient had surgery last night. Patient denies any fever chills or sweats. Most of the redness has been on her right middle finger and she did not see any red streaks going up her hand or forearm. Patient has not been febrile. Her WBC is normal. Sed rate and C-reactive protein is normal. She is currently on vancomycin and Zosyn. Patient has had HIV for many years, and she has been following with Dr. Darnell for at least several years. She has been on the same HAART for the same amount of time. She does not know her last CD4 counts. Infectious disease consultation has been requested to assist with evaluation and treatment. Notes reviewed No fever OR C/S negative so far Antibiotics Vancomycin Zosyn Current Medications Medications (Trade) Dose Ordered Sig/Carlito Route Start Time Stop Time Status Last Admin (NS Flush) 2 ml UNSCH PRN IV FLUSH 09/30/17 20:15 (NS Flush) 2 ml BID IV FLUSH 09/30/17 21:00 10/02/17 07:43 (Tylenol) 650 mg Q4H PRN PO 09/30/17 20:15 (Narcan Inj) 0.4 mg UNSCH PRN IV PUSH 09/30/17 20:15 (Toradol Inj) 30 mg Q6H PRN IV PUSH 09/30/17 20:15 10/05/17 20:14 10/02/17 10:15 (Percocet 7.5-325 Mg) 1 tab Q4H PRN PO 09/30/17 20:45 10/02/17 07:42 (Norvasc) 10 mg DAILY PO 10/01/17 09:00 10/02/17 07:42 Pharmacy Profile Note 0 ml @ 0 mls/hr UNSCH OTHER 09/30/17 20:45 Piperacillin Sod/ Tazobactam Sod 50 ml @ 100 mls/hr Q6H IV 09/30/17 21:00 10/02/17 07:43 Patient Own Medication PT OWN MED: DESCOVY... DAILY PO 10/01/17 09:00 Future Hold (Intelence) 200 mg BID PO 09/30/17 21:00 10/02/17 07:42 Vancomycin HCl 1000 mg/Sodium Chloride 250 ml @ 250 mls/hr Q18H IV 10/01/17 16:00 10/02/17 10:11 [place] [place] [place] Info) SPECIFIC LAB TO BE DRAWN:VANCO TROUGH DATE... ONCE ONCE .XX 10/03/17 03:45 10/03/17 03:46 (Narcan Inj) 0.4 mg UNSCH PRN IV PUSH 10/01/17 17:45 (Donna-Colace) 1 tab BID PO 10/01/17 21:00 10/02/17 07:42 (Milk Of Magnesia Liq) 30 ml Q12H PRN PO 10/01/17 17:45 (Senokot) 17.2 mg Q12H PRN PO 10/01/17 17:45 (Dulcolax Supp) 10 mg DAILY PRN RECTAL 10/01/17 17:45 (Lactulose Liq) 30 ml DAILY PRN PO 10/01/17 17:45 (Tums Chew) 500 mg Q2H PRN CHEW 10/01/17 20:00 10/02/17 08:31 Lines PIV no evid of infection Past Medical History HIV (per patient her viral load is undetectable) Osteoporosis Hypertension Coloperineal fistula Previous episode of diverticulitis Past Surgical History Left hip replacement Right femur Left elbow Previous exp lap, with proctosigmoidectomy, ileostomy Reversal of ileostomy Allergies: Coded Allergies: morphine (Unverified Allergy, Intermediate, Hallucinations, 09/30/17) Uncoded Allergies: CATS AND HORSES (Allergy, Mild, 09/14/09) Objective . Vital Signs Date Time Temp Pulse Resp B/P (MAP) Pulse Ox O2 Delivery O2 Flow Rate FiO2 10/02/17 12:00 98.0 73 17 102/50 (67) 93 10/02/17 11:50 20 10/02/17 08:51 16 10/02/17 08:00 97.8 68 17 130/73 (92) 98 10/02/17 04:00 98.1 79 19 112/65 (81) 92 10/02/17 00:00 98.1 77 19 115/62 (79) 95 10/01/17 20:00 98.2 76 19 114/57 (76) 97 10/01/17 16:00 98.0 78 16 134/68 (90) 94 . Laboratory Tests Test 09/30/17 18:06 10/01/17 07:56 White Blood Count 4.0 TH/MM3 6.0 TH/MM3 Red Blood Count 3.69 MIL/MM3 3.53 MIL/MM3 Hemoglobin 12.3 GM/DL 11.9 GM/DL Hematocrit 36.4 % 34.8 % Mean Corpuscular Volume 98.9 FL 98.8 FL Mean Corpuscular Hemoglobin 33.3 PG 33.6 PG Mean Corpuscular Hemoglobin Concent 33.6 % 34.0 % Red Cell Distribution Width 12.2 % 12.2 % Platelet Count 179 TH/MM3 167 TH/MM3 Mean Platelet Volume 7.4 FL 7.6 FL Neutrophils (%) (Auto) 54.2 % 78.7 % Lymphocytes (%) (Auto) 32.8 % 15.9 % Monocytes (%) (Auto) 7.9 % 4.9 % Eosinophils (%) (Auto) 4.0 % 0.1 % Basophils (%) (Auto) 1.1 % 0.4 % Neutrophils # (Auto) 2.2 TH/MM3 4.8 TH/MM3 Lymphocytes # (Auto) 1.3 TH/MM3 1.0 TH/MM3 Monocytes # (Auto) 0.3 TH/MM3 0.3 TH/MM3 Eosinophils # (Auto) 0.2 TH/MM3 0.0 TH/MM3 Basophils # (Auto) 0.0 TH/MM3 0.0 TH/MM3 CBC Comment DIFF FINAL DIFF FINAL Differential Comment Erythrocyte Sedimentation Rate 17 mm/hr Laboratory Tests Test 09/30/17 18:06 10/01/17 07:56 Blood Urea Nitrogen 21 MG/DL 19 MG/DL Creatinine 0.82 MG/DL 0.71 MG/DL Random Glucose 86 MG/DL 102 MG/DL Calcium Level 8.8 MG/DL 8.0 MG/DL Sodium Level 141 MEQ/L 139 MEQ/L Potassium Level 3.4 MEQ/L 4.0 MEQ/L Chloride Level 104 MEQ/L 103 MEQ/L Carbon Dioxide Level 27.5 MEQ/L 26.0 MEQ/L Anion Gap 10 MEQ/L 10 MEQ/L Estimat Glomerular Filtration Rate 70 ML/MIN 83 ML/MIN C-Reactive Protein LESS THAN 0.29 MG/DL Microbiology Date/Time Source Procedure Growth Status 09/30/17 20:47 Wound Finger Fungal Smear - Final NO FUNGAL ELEMENTS SEEN. Resulted 09/30/17 20:47 Wound Finger Fungal Culture Pending Resulted 09/30/17 20:47 Wound Finger Acid Fast Stain - Final NO ACID FAST BACILLI SEEN Resulted 09/30/17 20:47 Wound Finger Mycobacterial Culture Pending Resulted 09/30/17 20:47 Wound Finger Gram Stain - Final Resulted 09/30/17 20:47 Wound Finger Wound Culture - Preliminary NO GROWTH IN 48 HOURS. Resulted Physical Exam GENERAL: awake and alert, not in respiratory distress. SKIN: Warm and dry. No generalized rash, no ecchymoses and no evidence of embolic lesions. HEAD: Atraumatic. Normocephalic. No temporal wasting, or tenderness. EYES: [place] conjunctiva. No petechia or hemorrhage. Pupils equal, round and reactive to light. Extraocular movements full and intact. No scleral icterus. No injection or drainage. EARS, NOSE AND THROAT: Nose without bleeding or purulent nasal discharge. No sinus tenderness. Mucous membranes pink and moist. NECK: Trachea midline. Supple and not tender, no meningeal signs CARDIOVASCULAR: Regular rate and rhythm. No murmurs, rubs or gallops heard RESPIRATORY: Clear to auscultation. Breath sounds equal bilaterally. No rales , wheezing or rhonchi ABDOMEN: Soft, non-tender, nondistended. Bowel sounds present and normoactive. No guarding. No rebound. No organomegaly. EXTREMITIES: No clubbing, cyanosis, or edema in BLE. No joint effusion, has good ROM. No calf tenderness. Well perfused and warm. R hand - has dressing in place NEUROLOGICAL: Non-focal. PSYCHIATRIC: Normal affect, calm and cooperative. LINE: No evidence of infection Assessment & Plan Remarks IMPRESSION RMF infection, into joint, from raccoon bite - S/P I and D Known HIV, seems stable and compliant with follow-up with Dr Darnell RECOMMENDATION Follow C/S and adjust Abx Continue current empiric Abx: Sukhjinder and Alvino Will examine hand when ok with surgery Monitor progress When patient gets D/C, she can follow up with Jacqueline Guerin MD Oct 02, 2017 13:03
[2017-10-02 16:00] VITALS: BP 137/57; PULSE 73; RESP 17; TEMP 97.8; O2SAT 97
[2017-10-02 20:00] VITALS: BP 113/55; PULSE 79; RESP 16; TEMP 98.4; O2SAT 95
[2017-10-03] VITALS: BP 115/60; PULSE 74; RESP 16; TEMP 98.6; O2SAT 92
[2017-10-03] MEDS: KETOROLAC TROMETHAMINE 30 MG/ML (IVP) VIAL IV PUSH PRN ×2 (00:08→15:59)
[2017-10-03] MEDS: PIPERACIL-TAZO 3.375 GM PREMIX 50 ML IV SCH ×2 (02:10→09:19)
[2017-10-03] MEDS: oxyCODONE/ACETAMINOPHEN 7.5 MG/325 MG TAB PO PRN ×7 (02:10→22:15)
[2017-10-03] MEDS ORDERED: PHARMACY ORDERED LAB ONE (03:45)
[2017-10-03] MEDS: VANCOMYCIN 1,000 MG/NS 250 ML IV SCH ×2 (06:02)
[2017-10-03] MEDS: DOCUSATE SODIUM 50 MG/SENNA 8.6 MG TAB PO SCH ×4 (07:45→22:16)
[2017-10-03 08:00] VITALS: BP 120/58; PULSE 68; RESP 16; TEMP 97.8; O2SAT 98
[2017-10-03] MEDS: SODIUM CHLORIDE 0.9% FLUSH 10 ML FLUSH IV FLUSH SCH ×2 (09:00→22:17)
[2017-10-03] MEDS: ETRAVIRINE 100 MG TAB PO SCH ×2 (09:21→22:17)
[2017-10-03 12:00] VITALS: BP 116/56; PULSE 81; RESP 16; TEMP 98.1; O2SAT 94
--- NOTE | 2017-10-03 12:02 | HHI.IDPN ---
Subjective Subjective Remarks Patient is 61-year-old female, admitted to the hospital for further management of her finger. Patient stated about a month ago he sustained a wound on her right middle finger after she had a raccoon. She called the health department and was told that there is been no rabies case in [place]. She started noticing swelling on her finger, and she saw her primary care physician who gave her a 5 day course of antibiotics. It did not improve, and she continued to have swelling and redness and had noted progression. She noted to pinpoint areas on the same finger but on the PIP joint and thought that she probably had some kind of a spider bite. She saw her primary care physician again, and she was given another antibiotic which she took for 10 days. She was not improving , and so an MRI was done. Took about a week to have the MRI done and the MRI showed evidence of abscess. Patient was told to go to the hospital and had surgery evaluated the patient. Patient had surgery last night. Patient denies any fever chills or sweats. Most of the redness has been on her right middle finger and she did not see any red streaks going up her hand or forearm. Patient has not been febrile. Her WBC is normal. Sed rate and C-reactive protein is normal. She is currently on vancomycin and Zosyn. Patient has had HIV for many years, and she has been following with Dr. Darnell for at least several years. She has been on the same HAART for the same amount of time. She does not know her last CD4 counts. Infectious disease consultation has been requested to assist with evaluation and treatment. Notes reviewed No fever OR C/S negative so far Patient states she was off Abx >7days before admission Antibiotics Vancomycin Zosyn Current Medications Medications (Trade) Dose Ordered Sig/Carlito Route Start Time Stop Time Status Last Admin (NS Flush) 2 ml UNSCH PRN IV FLUSH 09/30/17 20:15 (NS Flush) 2 ml BID IV FLUSH 09/30/17 21:00 10/03/17 09:00 (Tylenol) 650 mg Q4H PRN PO 09/30/17 20:15 (Narcan Inj) 0.4 mg UNSCH PRN IV PUSH 09/30/17 20:15 (Toradol Inj) 30 mg Q6H PRN IV PUSH 09/30/17 20:15 10/05/17 20:14 10/03/17 00:08 (Percocet 7.5-325 Mg) 1 tab Q4H PRN PO 09/30/17 20:45 10/03/17 10:10 (Norvasc) 10 mg DAILY PO 10/01/17 09:00 10/03/17 09:22 Pharmacy Profile Note 0 ml @ 0 mls/hr UNSCH OTHER 09/30/17 20:45 Patient Own Medication PT OWN MED: DESCOVY... DAILY PO 10/01/17 09:00 Future Hold (Intelence) 200 mg BID PO 09/30/17 21:00 10/03/17 09:21 (Narcan Inj) 0.4 mg UNSCH PRN IV PUSH 10/01/17 17:45 (Donna-Colace) 1 tab BID PO 10/01/17 21:00 10/03/17 09:35 (Milk Of Magnesia Liq) 30 ml Q12H PRN PO 10/01/17 17:45 10/02/17 14:05 (Senokot) 17.2 mg Q12H PRN PO 10/01/17 17:45 (Dulcolax Supp) 10 mg DAILY PRN RECTAL 10/01/17 17:45 (Lactulose Liq) 30 ml DAILY PRN PO 10/01/17 17:45 (Tums Chew) 500 mg Q2H PRN CHEW 10/01/17 20:00 10/02/17 23:38 Vancomycin HCl 1250 mg/Sodium Chloride 262.5 ml @ 250 mls/hr Q18H IV 10/03/17 22:00 ([facility] Ordered Lab Info) SPECIFIC LAB TO BE DRAWN:VANCO TROUGH DATE TO BE DR... ONCE ONCE .XX 10/05/17 09:45 10/05/17 09:46 (Cipro) 750 mg Q12HR PO 10/03/17 12:00 UNV Lines PIV no evid of infection Past Medical History HIV (per patient her viral load is undetectable) Osteoporosis Hypertension Coloperineal fistula Previous episode of diverticulitis Past Surgical History Left hip replacement Right femur Left elbow Previous exp lap, with proctosigmoidectomy, ileostomy Reversal of ileostomy Allergies: Coded Allergies: morphine (Unverified Allergy, Intermediate, Hallucinations, 09/30/17) Uncoded Allergies: CATS AND HORSES (Allergy, Mild, 09/14/09) Objective . Vital Signs Date Time Temp Pulse Resp B/P (MAP) Pulse Ox O2 Delivery O2 Flow Rate FiO2 10/03/17 00:00 98.6 74 16 115/60 (78) 92 10/02/17 20:00 98.4 79 16 113/55 (74) 95 10/02/17 16:00 97.8 73 17 137/57 (83) 97 10/02/17 15:09 18 10/02/17 12:00 98.0 73 17 102/50 (67) 93 10/03/17 10/03/17 10/04/17 15:00 23:00 07:00 Intake Total 300 ml Balance 300 ml IV Total 300 ml . Microbiology Date/Time Source Procedure Growth Status 09/30/17 20:47 Wound Finger Fungal Smear - Final NO FUNGAL ELEMENTS SEEN. Resulted 09/30/17 20:47 Wound Finger Fungal Culture Pending Resulted 09/30/17 20:47 Wound Finger Acid Fast Stain - Final NO ACID FAST BACILLI SEEN Resulted 09/30/17 20:47 Wound Finger Mycobacterial Culture Pending Resulted 09/30/17 20:47 Wound Finger Gram Stain - Final Complete 09/30/17 20:47 Wound Finger Wound Culture - Final NO GROWTH IN 72 HRS.--AEROBICALLY OR ... Complete Physical Exam GENERAL: awake and alert, not in respiratory distress. SKIN: Warm and dry. No generalized rash, no ecchymoses and no evidence of embolic lesions. HEAD: Atraumatic. Normocephalic. No temporal wasting, or tenderness. EYES: [place] conjunctiva. No petechia or hemorrhage. Pupils equal, round and reactive to light. Extraocular movements full and intact. No scleral icterus. No injection or drainage. EARS, NOSE AND THROAT: Nose without bleeding or purulent nasal discharge. No sinus tenderness. Mucous membranes pink and moist. NECK: Trachea midline. Supple and not tender, no meningeal signs CARDIOVASCULAR: Regular rate and rhythm. No murmurs, rubs or gallops heard RESPIRATORY: Clear to auscultation. Breath sounds equal bilaterally. No rales , wheezing or rhonchi ABDOMEN: Soft, non-tender, nondistended. Bowel sounds present and normoactive. No guarding. No rebound. No organomegaly. EXTREMITIES: No clubbing, cyanosis, or edema in BLE. No joint effusion, has good ROM. No calf tenderness. Well perfused and warm. R hand - RMF still swollen and red at PIP joint, has packing in place, pain with ROM NEUROLOGICAL: Non-focal. PSYCHIATRIC: Normal affect, calm and cooperative. LINE: No evidence of infection Assessment & Plan Remarks IMPRESSION RMF infection, into joint, from raccoon bite, ?Spider bite - S/P I and D Known HIV, seems stable and compliant with follow-up with Dr Darnell RECOMMENDATION Continue Vanco Change Zosyn to Cipro Await hand surgery Monitor progress When patient gets D/C, she can follow up with Jacqueline Guerin MD Oct 03, 2017 12:02
[2017-10-03] MEDS: CIPROFLOXACIN 750 MG TAB PO SCH ×2 (13:14→22:17)
--- NOTE | 2017-10-03 13:41 | HHI.PR ---
Subjective Remarks Throbbing pain improved some but still with pain. No fever or chills. No nausea vomiting no diarrhea or constipation. Objective Vitals Vital Signs Date Time Temp Pulse Resp B/P (MAP) Pulse Ox O2 Delivery O2 Flow Rate FiO2 10/03/17 08:00 97.8 68 16 120/58 (78) 98 10/03/17 00:00 98.6 74 16 115/60 (78) 92 10/02/17 20:00 98.4 79 16 113/55 (74) 95 10/02/17 16:00 97.8 73 17 137/57 (83) 97 10/02/17 15:09 18 I/O 10/02/17 10/02/17 10/02/17 10/03/17 10/03/17 10/03/17 07:00 15:00 23:00 07:00 15:00 23:00 Intake Total 240 ml 1010 ml 530 ml 300 ml Balance 240 ml 1010 ml 530 ml 300 ml Intake Oral 240 ml 960 ml 480 ml IV Total 50 ml 50 ml 300 ml # Voids 3 4 2 # Bowel Movements 0 0 0 Result Diagram: 10/01/17 0756 10/01/17 0756 Objective Remarks GENERAL: This is a well-nourished, well-developed patient, in no apparent distress. CARDIOVASCULAR: Regular rate and rhythm without murmurs, gallops, or rubs. RESPIRATORY: Clear to auscultation. Breath sounds equal bilaterally. No wheezes , rales, or rhonchi. GASTROINTESTINAL: Abdomen soft, non-tender, nondistended. No hepato-splenomegaly , or palpable masses. No guarding. MUSCULOSKELETAL: Right hand with dressing on , some bloody discharge seen. Neurovascular intact. No calf tenderness. Unable to flex or extend third digit of right hand at the PCP joint. No obvious drainage. Warm to the touch. NEUROLOGICAL: Awake and alert. Cranial nerves II through XII intact. Motor and sensory grossly within normal limits. Normal speech. A/P Assessment and Plan 61yF pmhx HIV several weeks s/p racoon bite to r middle finger s/p oral antibiotics with MRI + abscess, POD- s/p I&D right middle finger, PIP arthrotomy and debridement extensor tendon sheath by Dr Nelly Stearns hand surgeon on 09/30/17. Finger abscess/cellulitis Status post antibiotic therapy as an outpatient MRI done Saturday showed abscess Hand surgery consulted, ff S/p I&D right middle finger, PIP arthrotomy and debridement extensor tendon sheath by Dr Nelly Stearns hand surgeon on 09/30/17. IV Ab per ID recommendations Daily dressing changes with packing per hand surgeon, ff Gentle ROM Continue Vancomycin. Change Zosyn to cipro per ID recommendations Wound cultures pending OT consulted Constipation - bowel regimen HIV - Continue home antiretrovirals Hypertension Continue home amlodipine DVT ppx scd/teds. Chemical ppx per surgeon if need. DC plan pending clearance by ID and hand surgery Sosa Alves MD Oct 03, 2017 13:41
[2017-10-03] MEDS: CALCIUM CARBONATE 500 MG CHEWABLE TAB CHEW PRN ×2 (14:21→22:17)
[2017-10-03 16:00] VITALS: BP 138/64; PULSE 73; RESP 16; TEMP 97.9; O2SAT 96
[2017-10-03 20:00] VITALS: BP 136/72; PULSE 74; RESP 16; TEMP 97.9; O2SAT 96
--- NOTE | 2017-10-03 20:33 | PD.ORT.PN ---
Subjective Subjective Remarks Patient reports pain controlled. Denies paresthesias. Objective Vitals Vital Signs Date Time Temp Pulse Resp B/P (MAP) Pulse Ox O2 Delivery O2 Flow Rate FiO2 10/03/17 16:00 97.9 73 16 138/64 (88) 96 10/03/17 12:00 98.1 81 16 116/56 (76) 94 10/03/17 08:00 97.8 68 16 120/58 (78) 98 10/03/17 00:00 98.6 74 16 115/60 (78) 92 I/O 10/02/17 10/02/17 10/02/17 10/03/17 10/03/17 10/03/17 07:00 15:00 23:00 07:00 15:00 23:00 Intake Total 240 ml 1010 ml 530 ml 300 ml 720 ml Balance 240 ml 1010 ml 530 ml 300 ml 720 ml Intake Oral 240 ml 960 ml 480 ml 720 ml IV Total 50 ml 50 ml 300 ml # Voids 3 4 2 3 # Bowel Movements 0 0 0 1 Result Diagram: 10/01/17 0756 10/01/17 0756 Objective Remarks Dressing changed, packing removed, minimal drainage, persistent erythema, function intact fds/fdp, sensation intact radial and ulnar, <2 sec capillary refill Assessment & Plan Assessment and Plan 61yF pmhx HIV several weeks s/p racoon bite to r middle finger s/p oral antibiotics with MRI + abscess, POD3 s/p I&D right middle finger, PIP arthrotomy and debridement extensor tendon sheath -Ab per ID, cultures negative -Okay to discharge per hand surgery, followup 1 week, also needs close outpatient followup with Dr Darnell -daily dressing changes, and gentle ROM Nelly Stearns MD Oct 03, 2017 20:33
[2017-10-03] MEDS: VANCOMYCIN INJ 1,250 MG in SODIUM CHLOR 0.9% 250 ML INJ 250 ML IV SCH (22:15)
[2017-10-04] VITALS: BP 149/76; PULSE 80; RESP 18; TEMP 97.9; O2SAT 95
[2017-10-04 05:27] LABS: CREATININE 0.65 MG/DL (0.50-1.00)
[2017-10-04] MEDS: oxyCODONE/ACETAMINOPHEN 7.5 MG/325 MG TAB PO PRN ×4 (05:37→18:36)
[2017-10-04 08:00] VITALS: BP 134/72; PULSE 94; RESP 16; TEMP 98; O2SAT 95
[2017-10-04] MEDS: CIPROFLOXACIN 750 MG TAB PO SCH (08:59)
[2017-10-04] MEDS: DOCUSATE SODIUM 50 MG/SENNA 8.6 MG TAB PO SCH (09:00)
[2017-10-04] MEDS: SODIUM CHLORIDE 0.9% FLUSH 10 ML FLUSH IV FLUSH SCH (09:00)
[2017-10-04] MEDS: ETRAVIRINE 100 MG TAB PO SCH (09:00)
--- NOTE | 2017-10-04 10:16 | HHI.FF ---
cc: Brittanie Darnell MD Infusion Therapy Location of Infusion Therapy: [facility] IV Infusion Order Patient Information Patient Weight 60.9 kg Diagnosis: Diagnosis Septic joint hand Coded Allergies: morphine (Unverified Allergy, Intermediate, Hallucinations, 09/30/17) Uncoded Allergies: CATS AND HORSES (Allergy, Mild, 09/14/09) Administer Medication Vancomycin 1 gm IV q12 Stop Treatment: Oct 25, 2017 Administer Medication cipro 750 mg po q12H x 21 days Additional Information Venous access: PICC Line Additional Instructions [x] Peripheral flush and dressing changes per protocol [x] Implanted port and central packaging line operator: * Implanted port: 10 ml Normal Saline followed by 5 ml Heparin 100 units/ml Heparin flush after each use and monthly to maintain. [] May leave port accessed during therapy. [] May leave peripheral site accessed for duration of therapy. [x] If patient has SOB or respiratory distress, check oxygen saturation. If less than 90% or clinical signs of respiratory distress, administer oxygen at 2 L/min. via nasal cannula and notify physician. [x] Anaphylaxis/Reaction orders: * Stop infusion. * Keep IV line open with saline flush. * Notify physician. * Monitor vital signs every 15 minutes until symptoms resolve. * Check Oxygen saturation; Oxygen at 2 L/min. via nasal cannula if less than 90% or clinical signs of respiratory distress. * Administer diphenhydramine (Benadryl) 25 mg IV STAT, (unless patient has received as pre-med). May repeat once, if necessary. * Solu-Cortef 250 mg IVP over 30-60 seconds, use 100 mg vials for each dissolution. * Epinephrine (1mg/1 ml) 0.3 mg subcutaneously or IVP now with any signs of respiratory distress. * Check with physician for new additional pre-med orders if patient is re- challenged or re-treated. [x] May remove PICC line when treatment complete, after confirming with Physician. [x] If the patient is admitted to the hospital, the ED, or transferred via [facility] , complete transfer form including medication reconciliation order sheet. Laboratory Tests Weekly Labs: CBC w/diff, Creatinine, Vancomycin Trough (labs every Saturday CBC , creatinine and Vanco trough; do full Vanco P and trough dose SaturdayOctober 07) Additional Information Please instruct patient to have follow-up with Dr Darnell in 1-2 weeks Jacqueline Grimes MD Oct 04, 2017 10:16
--- NOTE | 2017-10-04 10:20 | HHI.IDPN ---
Subjective Subjective Remarks Patient is 61-year-old female, admitted to the hospital for further management of her finger. Patient stated about a month ago he sustained a wound on her right middle finger after she had a raccoon. She called the health department and was told that there is been no rabies case in [place]. She started noticing swelling on her finger, and she saw her primary care physician who gave her a 5 day course of antibiotics. It did not improve, and she continued to have swelling and redness and had noted progression. She noted to pinpoint areas on the same finger but on the PIP joint and thought that she probably had some kind of a spider bite. She saw her primary care physician again, and she was given another antibiotic which she took for 10 days. She was not improving , and so an MRI was done. Took about a week to have the MRI done and the MRI showed evidence of abscess. Patient was told to go to the hospital and had surgery evaluated the patient. Patient had surgery last night. Patient denies any fever chills or sweats. Most of the redness has been on her right middle finger and she did not see any red streaks going up her hand or forearm. Patient has not been febrile. Her WBC is normal. Sed rate and C-reactive protein is normal. She is currently on vancomycin and Zosyn. Patient has had HIV for many years, and she has been following with Dr. Darnell for at least several years. She has been on the same HAART for the same amount of time. She does not know her last CD4 counts. Infectious disease consultation has been requested to assist with evaluation and treatment. Notes reviewed No fever OR C/S negative Patient states she was off Abx >7days before admission Spoke with Dr barker last night Patient has been cleared for D/C by surgery Antibiotics Vancomycin Cipro Current Medications Medications (Trade) Dose Ordered Sig/Carlito Route Start Time Stop Time Status Last Admin (NS Flush) 2 ml UNSCH PRN IV FLUSH 09/30/17 20:15 (NS Flush) 2 ml BID IV FLUSH 09/30/17 21:00 10/04/17 09:00 (Tylenol) 650 mg Q4H PRN PO 09/30/17 20:15 (Narcan Inj) 0.4 mg UNSCH PRN IV PUSH 09/30/17 20:15 (Toradol Inj) 30 mg Q6H PRN IV PUSH 09/30/17 20:15 10/05/17 20:14 10/03/17 15:59 (Percocet 7.5-325 Mg) 1 tab Q4H PRN PO 09/30/17 20:45 10/04/17 09:00 (Norvasc) 10 mg DAILY PO 10/01/17 09:00 10/04/17 09:00 Pharmacy Profile Note 0 ml @ 0 mls/hr UNSCH OTHER 09/30/17 20:45 Patient Own Medication PT OWN MED: DESCOVY... DAILY PO 10/01/17 09:00 Future Hold (Intelence) 200 mg BID PO 09/30/17 21:00 10/04/17 09:00 (Narcan Inj) 0.4 mg UNSCH PRN IV PUSH 10/01/17 17:45 (Donna-Colace) 1 tab BID PO 10/01/17 21:00 10/04/17 09:00 (Milk Of Magnesia Liq) 30 ml Q12H PRN PO 10/01/17 17:45 10/02/17 14:05 (Senokot) 17.2 mg Q12H PRN PO 10/01/17 17:45 (Dulcolax Supp) 10 mg DAILY PRN RECTAL 10/01/17 17:45 (Lactulose Liq) 30 ml DAILY PRN PO 10/01/17 17:45 (Tums Chew) 500 mg Q2H PRN CHEW 10/01/17 20:00 10/03/17 22:17 Vancomycin HCl 1250 mg/Sodium Chloride 262.5 ml @ 250 mls/hr Q18H IV 10/03/17 22:00 10/03/17 22:15 ([facility] Ordered Lab Info) SPECIFIC LAB TO BE DRAWN:VANCO TROUGH DATE TO BE DR... ONCE ONCE .XX 10/05/17 09:45 10/05/17 09:46 (Cipro) 750 mg Q12HR PO 10/03/17 12:00 10/04/17 08:59 Lines PIV no evid of infection Past Medical History HIV (per patient her viral load is undetectable) Osteoporosis Hypertension Coloperineal fistula Previous episode of diverticulitis Past Surgical History Left hip replacement Right femur Left elbow Previous exp lap, with proctosigmoidectomy, ileostomy Reversal of ileostomy Allergies: Coded Allergies: morphine (Unverified Allergy, Intermediate, Hallucinations, 09/30/17) Uncoded Allergies: CATS AND HORSES (Allergy, Mild, 09/14/09) Objective . Vital Signs Date Time Temp Pulse Resp B/P (MAP) Pulse Ox O2 Delivery O2 Flow Rate FiO2 10/04/17 08:00 98.0 94 16 134/72 (92) 95 10/04/17 00:00 97.9 80 18 149/76 (100) 95 10/03/17 20:00 97.9 74 16 136/72 (93) 96 10/03/17 16:00 97.9 73 16 138/64 (88) 96 10/03/17 12:00 98.1 81 16 116/56 (76) 94 . Laboratory Tests Test 10/04/17 04:28 Creatinine 0.65 MG/DL Estimat Glomerular Filtration Rate 92 ML/MIN Physical Exam GENERAL: awake and alert, not in respiratory distress. SKIN: Warm and dry. No generalized rash, no ecchymoses and no evidence of embolic lesions. HEAD: Atraumatic. Normocephalic. No temporal wasting, or tenderness. EYES: [place] conjunctiva. No petechia or hemorrhage. Pupils equal, round and reactive to light. Extraocular movements full and intact. No scleral icterus. No injection or drainage. EARS, NOSE AND THROAT: Nose without bleeding or purulent nasal discharge. No sinus tenderness. Mucous membranes pink and moist. NECK: Trachea midline. Supple and not tender, no meningeal signs CARDIOVASCULAR: Regular rate and rhythm. No murmurs, rubs or gallops heard RESPIRATORY: Clear to auscultation. Breath sounds equal bilaterally. No rales , wheezing or rhonchi ABDOMEN: Soft, non-tender, nondistended. Bowel sounds present and normoactive. No guarding. No rebound. No organomegaly. EXTREMITIES: No clubbing, cyanosis, or edema in BLE. No joint effusion, has good ROM. No calf tenderness. Well perfused and warm. R hand - RMF still swollen and red at PIP joint, has packing in place, pain with ROM NEUROLOGICAL: Non-focal. PSYCHIATRIC: Normal affect, calm and cooperative. LINE: No evidence of infection Assessment & Plan Remarks IMPRESSION RMF infection, into joint, from raccoon bite, ?Spider bite - S/P I and D Known HIV, seems stable and compliant with follow-up with Dr Darnell RECOMMENDATION Continue Vanco IV Continue Cipro po PICC Arrange for home IV Abx Abx infusion form filled out She will follow up with Dr Darnell ID on D/C OK to D/C once arrangements made Jacqueline Grimes MD Oct 04, 2017 10:20
[2017-10-04] MEDS ORDERED: VANC1000P IV (10:22)
[2017-10-04] MEDS ORDERED: CIPR250T52 PO (10:22)
[2017-10-04 12:00] VITALS: BP 117/64; PULSE 86; RESP 16; TEMP 97.8; O2SAT 94
[2017-10-04] MEDS ORDERED: SODIUM CHLORIDE 0.9% FLUSH 10 ML FLUSH IV FLUSH PRN (14:00)
--- NOTE | 2017-10-04 15:19 | HHI.PR ---
Subjective Remarks Feels better. Says pain in her hand is improved. No fever or chills no nausea or vomiting. Cleared by infectious disease and hand surgeon for discharge later today Objective Vitals Vital Signs Date Time Temp Pulse Resp B/P (MAP) Pulse Ox O2 Delivery O2 Flow Rate FiO2 10/04/17 12:00 97.8 86 16 117/64 (81) 94 10/04/17 08:00 98.0 94 16 134/72 (92) 95 10/04/17 00:00 97.9 80 18 149/76 (100) 95 10/03/17 20:00 97.9 74 16 136/72 (93) 96 10/03/17 16:00 97.9 73 16 138/64 (88) 96 I/O 10/03/17 10/03/17 10/03/17 10/04/17 10/04/17 10/04/17 07:00 15:00 23:00 07:00 15:00 23:00 Intake Total 530 ml 300 ml 720 ml 250 ml Balance 530 ml 300 ml 720 ml 250 ml Intake Oral 480 ml 720 ml IV Total 50 ml 300 ml 250 ml # Voids 2 3 3 # Bowel Movements 0 1 Result Diagram: 10/01/17 0756 10/04/17 0428 Objective Remarks GENERAL: This is a well-nourished, well-developed patient, in no apparent distress. CARDIOVASCULAR: Regular rate and rhythm without murmurs, gallops, or rubs. RESPIRATORY: Clear to auscultation. Breath sounds equal bilaterally. No wheezes , rales, or rhonchi. GASTROINTESTINAL: Abdomen soft, non-tender, nondistended. No hepato-splenomegaly , or palpable masses. No guarding. MUSCULOSKELETAL: Right hand with dressing on , some bloody discharge seen. Neurovascular intact. No calf tenderness. Unable to flex or extend third digit of right hand at the PCP joint. No obvious drainage. Warm to the touch. NEUROLOGICAL: Awake and alert. Cranial nerves II through XII intact. Motor and sensory grossly within normal limits. Normal speech. A/P Assessment and Plan 61yF pmhx HIV several weeks s/p racoon bite to r middle finger s/p oral antibiotics with MRI + abscess, POD- s/p I&D right middle finger, PIP arthrotomy and debridement extensor tendon sheath by Dr Nelly Stearns hand surgeon on 09/30/17. Finger abscess/cellulitis Status post antibiotic therapy as an outpatient MRI done showed abscess Hand surgery consulted, ff S/p I&D right middle finger, PIP arthrotomy and debridement extensor tendon sheath by Dr Nelly Stearns hand surgeon on 09/30/17. IV Ab per ID recommendations Daily dressing changes with packing per hand surgeon, ff Gentle ROM Continue Vancomycin. Change Zosyn to cipro per ID recommendations Wound cultures pending OT consulted Patient with Septic joint hand Antibiotic at DC: Vancomycin 1 gm IV q12. Stop Treatment: Oct 25, 2017 Cipro 750 mg po q12H x 21 days Venous access: PICC Line CBC w/diff, Creatinine, Vancomycin Trough (labs every Saturday CBC, creatinine and Vanco trough; do full Vanco P and trough dose SaturdayOctober 07) Patient to have follow-up with Dr Darnell in 1-2 weeks. Follow up with hand surgeon and PCP as OP . DC home in stable condition Constipation - bowel regimen HIV - Continue home antiretrovirals Hypertension Continue home amlodipine DVT ppx scd/teds. Chemical ppx per surgeon if need. Discharge Planning DC home on PO and IV antibiotic Sosa Alves MD Oct 04, 2017 15:18
[2017-10-04 16:00] VITALS: BP 131/68; PULSE 89; RESP 16; TEMP 98.2; O2SAT 94
[2017-10-04] MEDS: VANCOMYCIN INJ 1,250 MG in SODIUM CHLOR 0.9% 250 ML INJ 250 ML IV SCH (16:08)
[2017-10-04] MEDS ORDERED: OXYC1TAB35 PO (16:54)
[2017-10-04] MEDS ORDERED: PERI PO (16:54)
--- NOTE | 2017-10-04 16:54 | HHI.DS ---
Discharge Summary Admission Date Sep 30, 2017 at 20:22 Discharge Date: Oct 04, 2017 Admitting Diagnosis Finger abscess (1) Abscess of finger ICD Code: L02.519 - Cutaneous abscess of unspecified hand (2) Infection of hand ICD Code: L08.9 - Local infection of the skin and subcutaneous tissue, unspecified Procedures S/p I&D right middle finger, PIP arthrotomy and debridement extensor tendon sheath by Dr Nelly Stearns hand surgeon on 09/30/17. Brief History - From Admission 61-year-old female with a past medical history significant for osteoporosis, HIV and hypertension presents the emergency department for evaluation of a erythematous and swollen right hand third digit. The patient reports that for approximately the past 3-4 weeks her finger has been swollen and painful. She reports the pain has continued to worsen and was throbbing all last night to the point where it interferes with her sleep. She denies any systemic symptoms such as fever/chills. The patient was seen by hand surgery where she was treated with 2 different courses of antibiotics and without improvement. She was sent to the emergency department by Dr. Stearns for further treatment. No chest pain or shortness of breath. No abdominal pain. No nausea/vomiting/ diarrhea. No weakness or fatigue. No lateralizing signs/symptoms. CBC/BMP: 10/01/17 0756 10/04/17 0428 Significant Findings Laboratory Tests Test 10/03/17 03:45 10/04/17 04:28 PE at Discharge GENERAL: This is a well-nourished, well-developed patient, in no apparent distress. CARDIOVASCULAR: Regular rate and rhythm without murmurs, gallops, or rubs. RESPIRATORY: Clear to auscultation. Breath sounds equal bilaterally. No wheezes , rales, or rhonchi. GASTROINTESTINAL: Abdomen soft, non-tender, nondistended. No hepato-splenomegaly , or palpable masses. No guarding. MUSCULOSKELETAL: Right hand with dressing on , some bloody discharge seen. Neurovascular intact. No calf tenderness. Unable to flex or extend third digit of right hand at the PCP joint. No obvious drainage. Warm to the touch. NEUROLOGICAL: Awake and alert. Cranial nerves II through XII intact. Motor and sensory grossly within normal limits. Normal speech. Hospital Course [id number] pmhx HIV several weeks s/p racoon bite to r middle finger s/p oral antibiotics with MRI + abscess, POD- s/p I&D right middle finger, PIP arthrotomy and debridement extensor tendon sheath by Dr Nelly Stearns hand surgeon on 09/30/17. Finger abscess/cellulitis Status post antibiotic therapy as an outpatient MRI done showed abscess Hand surgery consulted, ff S/p I&D right middle finger, PIP arthrotomy and debridement extensor tendon sheath by Dr Nelly Stearns hand surgeon on 09/30/17. IV Ab per ID recommendations Daily dressing changes with packing per hand surgeon, ff Gentle ROM Continue Vancomycin. Change Zosyn to cipro per ID recommendations Wound cultures pending OT consulted Patient with Septic joint hand Antibiotic at DC: Vancomycin 1 gm IV q12. Stop Treatment: Oct 25, 2017 Cipro 750 mg po q12H x 21 days Venous access: PICC Line CBC w/diff, Creatinine, Vancomycin Trough (labs every Saturday CBC, creatinine and Vanco trough; do full Vanco P and trough dose SaturdayOctober 07) Patient to have follow-up with Dr Darnell in 1-2 weeks. Follow up with hand surgeon and PCP as OP . DC home in stable condition Constipation - bowel regimen HIV - Continue home antiretrovirals HypertensionContinue home amlodipine Pt Condition on Discharge: Stable Discharge Disposition: Discharge Home Discharge Time: > 30 minutes Discharge Instructions DIET: Follow Instructions for: Heart Healthy Diet Activities you can perform: Regular-No Restrictions Follow up Referrals: Hand Surgery - 1 Week Infectious Disease - 1 Week with Brittanie Darnell MD PCP Follow-up - 2-3 Days New Medications: Ciprofloxacin (Cipro) 250 Mg Tab 750 MG PO BID for Infection for 21 Days, #126 TAB Vancomycin Inj (Vancomycin Inj) 1 Gram Inj 1000 MG IV Q12HR for Infection for 21 Days, #42 BAG 0 Refills Oxycodone HCl/Acetaminophen (Oxycodon-Acetaminophen 7.5-325) 7.5 Mg-325 Mg Tablet 1 TAB PO Q4H PRN for pain management , #20 TAB Sennosides-Docusate Sodium (Gnp Senna Plus 8.6-50 mg) 8.6 Mg-50 Mg Tab 1 TAB PO BID for constipation , #60 TAB Continued Medications: Emtricitabine-Tenofovir Alafenamide (Descovy) 200-25 mg Tab 1 TAB PO DAILY for Mgmt Viral Infection, #30 TAB 0 Refills Etravirine (Intelence) 200 Mg Tab 200 MG PO BID for Mgmt Viral Infection, TAB 0 Refills Sosa Alves MD Oct 04, 2017 16:54
--- NOTE | 2017-10-04 17:00 | HHI.FF ---
Face to Face Verification Diagnosis: (1) Infection of hand Home Health Nursing Order: IV medication administration I have seen patient Alexa Varela on 10/04/17. My clinical findings support the need for the requested home health care services because: Ltd mobility - disease progression I certify that my clinical findings support that this patient is homebound because: Post-op weakness Sosa Alves MD Oct 04, 2017 17:00
--- NOTE | 2017-10-04 17:13 | HHI.FF ---
Face to Face Verification Diagnosis: (1) Infection of hand (2) Abscess of finger Home Health Nursing Order: Medical education Signs/symptoms of disease process Medication education-adverse effect Nursing assessment with vital signs IV medication administration I have seen patient Alexa Varela on 10/04/17. My clinical findings support the need for the requested home health care services because: Ltd mobility - disease progression I certify that my clinical findings support that this patient is homebound because: Post-op weakness Sosa Alves MD Oct 04, 2017 17:13
[2017-10-05] MEDS ORDERED: SODIUM CHLORIDE 0.9% FLUSH 10 ML FLUSH IV FLUSH SCH (09:00)
[2017-10-05] MEDS ORDERED: PHARMACY ORDERED LAB ONE (09:45)
== END 2017-10-04 19:34 | disposition home or self-care (01) | DRG 513 ==
LOC: NEPD 15:40 → NEDA 19:34 → OBSVTOIN 20:22 → N07B 22:22
PROVIDERS: ADMIT Hospitalist; ATTEND Hospitalist
PROC: 0R9W0ZX Drainage of Right Finger Phalangeal Joint, Open Approach, Diagnostic (ICD-10-PCS; 2017-09-30)
PROC: 0LB70ZZ Excision of Right Hand Tendon, Open Approach (ICD-10-PCS; principal; 2017-09-30 20:17)
PROC: 05HY33Z Insertion of Infusion Device into Upper Vein, Percutaneous Approach (ICD-10-PCS; 2017-10-04)
DX: M00.9 Pyogenic arthritis, unspecified (principal); L02.511 Cutaneous abscess of right hand; I10 Essential (primary) hypertension; M65.841 Other synovitis and tenosynovitis, right hand; L03.011 Cellulitis of right finger; S61.252A Open bite of right middle finger without damage to nail, initial encounter; W55.51XA Bitten by raccoon, initial encounter; Z21 Asymptomatic human immunodeficiency virus [HIV] infection status; M81.0 Age-related osteoporosis without current pathological fracture; Z88.5 Allergy status to narcotic agent; K59.00 Constipation, unspecified; Z96.643 Presence of artificial hip joint, bilateral; Z85.820 Personal history of malignant melanoma of skin
CPT/HCPCS: 36569; 76937; 80048; 80202; 82565; 85025; 85652; 86140; 86355; 86357; 86359; 86360; 87015; 87070; 87102; 87116; 87205; 87206; 88304; 88305; J0690; J1100; J1170; J1885; J2370; J2405; J2543; J3010; J3370; J7050